=== PATIENT | female | born 1995 ===

== ENCOUNTER 2019-07-02 12:53 | Emergency (ER) | payer SELFPAY ==
[2019-07-02] MEDS ORDERED: Ketorolac *IM* INJ* 60 MG/2 ML VIAL IM ONE (15:20)
[2019-07-02] MEDS ORDERED: Lidocaine 2% VISCOUS* 15 ML UDC PO ONE (15:21)
[2019-07-02] MEDS ORDERED: Acetaminophen TAB* 325 MG PO ONE (15:22)
[2019-07-02 16:10] LABS: Rapid Strep Molecular Negative (Negative)
[2019-07-02 16:46] VITALS: BP 122/69
--- NOTE | 2019-07-03 05:25 | ED ---
Throat Pain/Nasal Congestion - HPI Summary HPI Summary: This patient is a 23-year-old female who presents to the ED with dysphagia and odynophagia x 2 days. She is also endorsing some swelling to the bilateral cervical anterior lymph nodes. Denies any ear pain, eye pain, CP or SOB. She was seen at her [facility], but strep was not obtained. She denies any drooling or inability to tolerate her saliva. Denies any evidence of a muffled voice. Patient is still able to speak in full sentences. She has not been taking medication [id number] for relief. She denies any fevers, sweats, chills. She denies history of strep throat. She denies any recent sick contacts. Denies any body aches. Denies having the flu shot yet this year. Patient states she is otherwise healthy. - History of Current Complaint Chief Complaint: EDFluSymptoms Time Seen by Provider: 07/02/19 14:54 Hx Obtained From: Patient Onset/Duration: Sudden Onset Severity: Moderate Associated Signs And Symptoms: Positive: Dysphagia. Negative: Drooling, Wheezing, Hoarseness, Sinus Discomfort, Nasal Discharge - Epiglottits Risk Factors Epiglottis Risk Factors: Negative - Allergies/Home Medications Allergies/Adverse Reactions: Allergies Allergy/AdvReac Type Severity Reaction Status Date / Time No Known Allergies Allergy Verified 07/02/19 13:18 PMH/Surg Hx/FS Hx/Imm Hx Previously Healthy: Yes - Immunization History Hx Pertussis Vaccination: No Immunizations Up to Date: Yes Infectious Disease History: No Infectious Disease History: Denies: Traveled Outside the [place] in Last 30 Days - Social History Occupation: Employed Part-time Alcohol Use: Occasionally Hx Substance Use: No Substance Use Type: Reports: None Hx Tobacco Use: No Smoking Status (MU): Never Smoked Tobacco Review of Systems Negative: Fever, Chills, Fatigue, Skin Diaphoresis Positive: Sore Throat. Negative: Epistaxis, Dental Pain, Ear Ache, Nasal Discharge Negative: Shortness Of Breath, Cough Negative: Abdominal Pain, Vomiting, Diarrhea, Nausea Genitourinary: Negative Positive: no symptoms reported, see HPI Negative: Arthralgia, Myalgia Negative: Rash, Bruising Neurological: Negative All Other Systems Reviewed And Are Negative: Yes Physical Exam Triage Information Reviewed: Yes Vital Signs On Initial Exam: Initial Vitals Temp Pulse Resp BP Pulse Ox 99.8 F 85 16 112/91 98 07/02/19 13:15 07/02/19 13:15 07/02/19 13:15 07/02/19 13:15 07/02/19 13:15 Vital Signs Reviewed: Yes Appearance: Positive: Well-Appearing, Well-Nourished Skin: Positive: Warm, Skin Color Reflects Adequate Perfusion Head/Face: Positive: Normal Head/Face Inspection Eyes: Positive: EOMI, SHERMAN ENT: Positive: Pharyngeal erythema Neck: Positive: Supple, No Lymphadenopathy Respiratory/Lung Sounds: Positive: Clear to Auscultation, Breath Sounds Present Cardiovascular: Positive: RRR, Pulses are Symmetrical in both Upper and Lower Extremities Musculoskeletal: Positive: Strength/ROM Intact Neurological: Positive: Alert, Oriented to Person Place, Time Psychiatric: Positive: Affect/Mood Appropriate Diagnostics - Vital Signs Vital Signs Temp Pulse Resp BP Pulse Ox 07/02/19 16:45 98.6 F 75 15 122/69 98 07/02/19 13:15 99.8 F 85 16 112/91 98 - Laboratory Lab Results: Lab Results 07/02/19 Range/Units 15:54 Group A Strep Rapid Negative (Negative) Lab Statement: Any lab studies that have been ordered have been reviewed, and results considered in the medical decision making process. EENT Course/Dx - Course Course Of Treatment: Patient is in no acute respiratory distress. Posterior pharyngeal erythema. Patchy tonsillar exudates and primenent tender, anterior cervical LAD. No palatal petechiae or rash. No evidence of strawberry tongue. No evidence of muffled voice, hoarseness, drooling or inability to tolerate saliva. No stridor, or tripod positioning. No stiff neck, evidence of bulging of the pharyngeal wall. Uvula midline. No crepitus. Pt given viscous lidocaine , Toradol, Tylenol and prednisone with good relief. Strep swab obtained and is negative. She will be diagnosed with pharyngitis and prescribed viscous lidocaine as well as Toradol. She will follow-up with her PCP in 2-3 days. Discharge ED - Discharge Plan Condition: Stable Disposition: HOME Prescriptions: Ketorolac TAB * [Toradol TAB *] 10 mg PO Q6H #16 tab Lidocaine 2% VISCOUS* [Xylocaine 2% Viscous*] 15 ml SWISH SPIT Q4H PRN #1 btl PRN Reason: Pain - Mild predniSONE TAB* [Deltasone TAB*] 50 mg PO DAILY #4 tab MDD 1 Patient Education Materials: Pharyngitis (ED) Forms: *Work Release Referrals: No Primary Care Phys,NOPCP [Primary Care Provider] - Additional Instructions: The strep throat swab is negative today Viscous lidocaine swish and swallow every 4 hours as needed for any pain control Tylenol 650 mg 3 times daily Toradol 10 mg 4 times daily 4 days, do not take any NSAIDs while taking this medication Prednisone once daily 4 days, you may start this medication in the morning If you develop any worsening or changing symptoms, return to the ED immediately Please follow-up with your PCP in the next 2 days - Billing Disposition and Condition Condition: STABLE Disposition: Home
[2019-07-03] MEDS ORDERED: predniSONE TAB* 50 MG PO ONE (15:21)
== END 2019-07-02 16:50 | disposition home or self-care (01) ==
LOC: ED 12:53
DX: J02.9 Acute pharyngitis, unspecified (principal); R13.10 Dysphagia, unspecified
CPT/HCPCS: 87651; 96372; 99282; A9270-GY; J1885; J7512